=== PATIENT | male | born 1990 | race African-American/Black ===

== ENCOUNTER 2023-12-22 23:18 | Emergency (ER) | payer BC ==
[2023-12-23 00:28] LABS: CORONAVIRUS COVID-19 NAA NEGATIVE (NEGATIVE); INFLUENZA A NAA NEGATIVE (NEGATIVE); RESPIRATORY SYNCYTIAL VIR NAA NEGATIVE (NEGATIVE)
== END 2023-12-23 01:37 | disposition home or self-care (01) ==
LOC: JD.ED 23:18
DX: J06.9 Acute upper respiratory infection, unspecified (principal)
CPT/HCPCS: 0241U; 71046; 99283